=== PATIENT | male | born 1975 | race Caucasian/White ===

== ENCOUNTER 2021-10-28 08:13 | Day surgery (SDC) | payer OTHER ==
[~2021-10-28] VITALS: Ht 182.9 cm; Wt 106.8 kg
[~2021-10-28 08:13] MED LIST: ASPIRIN325 MG; BUSPIRONE HCL5 MG PO; COZAAR25 MG PO; HYDROCHLOROTH12.5 MG; TOPIRAMATE25 MG PO
[2021-10-28] MEDS ORDERED: LOW DOSE ASPIRI81 MG PO (08:31)
[2021-10-28] MEDS ORDERED: MULTIVITAMIN1 EACH PO (08:34)
[2021-10-28] MEDS ORDERED: VITAMIN C500 M1 PO (08:34)
--- NOTE | 2021-10-28 11:05 | NUR ---
10/28/21 1105 Saumya Samuel 1056- PT ARRIVES TO PACU AWAKE ON AND OFF ON HIS OWN. PT REPORTS NO PAIN OR NAUSEA. RESP EVEN AND UNLABORED. OXYGEN SAT MID TO HIGH 90'S ON 3L VIA NC. 1103- PT RESTING IN BED WITH HIS EYES CLOSED. PT HAS NO REQUESTS AT THIS TIME.
--- NOTE | 2021-10-29 09:03 | OR ---
[facility] [address], [place] [address] Signed DATE OF OPERATION: 10/28/2021 SURGEON: Babar Schofield MD PREOPERATIVE DIAGNOSES: 1. Paternal great grandmother with colon cancer in her 80s. 2. Maternal grandfather with colon cancer at age 66. 3. Mother with colonic polyps in her 50s. POSTOPERATIVE DIAGNOSES: 1. 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 2. 5 mm polyp at 25 cm. 3. Minimal internal hemorrhoids. PROCEDURE: Colonoscopy with hot biopsy. ESTIMATED BLOOD LOSS: None. INDICATIONS: Lawrence is a 45-year-old gentleman asked to see me for his initial colonoscopy. He has a significant family history as noted above. He currently has no lower GI complaints. I gave him a pamphlet in the office on colonoscopy and we reviewed that together along with the risks including, but not limited to gas bloating, crampy abdominal pain, bleeding, perforation requiring surgery, and missed diagnosis. We also reviewed the need for IV conscious sedation. He had expressed understanding and wished to proceed. DESCRIPTION OF PROCEDURE: Lawrence was taken into our endoscopy suite and placed in the left lateral decubitus position. He was given 8 mg of Versed and 125 mcg of fentanyl to cover the entire case, even then he was awakened, groaning too much of the procedure. We were actually concerned that we were not going to reach the cecum. Thankfully, his prep was quite good and his colon is not particularly difficult to pass the scope. Nevertheless, he really should consider monitored anesthesia care in the future, it would be much safer and more comfortable for him. He was pushing back on the scope almost the entire procedure. A digital rectal exam was performed. He does have an external hemorrhoid on the left side. He has a big man, I could just reach part of his prostate, not particularly concerning. The adult colonoscope was introduced and advanced under direct visualization of camera. Again, we had to keep adding additional doses of the Versed Electronically Signed By: BABAR SCHOFIELD MD 10/29/21 0903 PATIENT NAME: LAWRENCE MEJIAS OPERATIVE REPORT DATE OF : 71 REPORT #: [id number] PHYSICIAN: BABAR SCHOFIELD MD PCP: JOSE LUIS COOK PA-C REPORT IS CONFIDENTIAL AND NOT TO BE RELEASED WITHOUT AUTHORIZATION [address] [address] Signed and fentanyl. We used some abdominal compression the cecum itself. Thankfully, his prep was quite good. We could easily see the appendiceal orifice and the ileocecal valve. He has a small lipoma on his ileocecal valve. We had taken pictures throughout for photodocumentation. The scope was then slowly withdrawn. He had a polyp back at 5 mm, which we removed with the help of a hot biopsy forceps. The rectum was unremarkable. Upon retroflexion of scope, he has minimal internal hemorrhoid tissue. After this, the gas was suctioned out and colonoscope removed. RECOMMENDATIONS: I will see Lawrence back in the office in 7 to 14 days to review his results. He should consider monitored anesthesia care in the future as described above. Babar Schofield MD ALB/MODL /[id number] cc: Babar Schofield MD Patient Chart's Jose Luis Cook PA-C Copies: BABAR SCHOFIELD MD ~ Electronically Signed By: BABAR SCHOFIELD MD 10/29/21 0903 PATIENT NAME: LAWRENCE MEJIAS OPERATIVE REPORT DATE OF : 71 REPORT #: [id number] PHYSICIAN: BABAR SCHOFIELD MD PCP: JOSE LUIS COOK PA-C REPORT IS CONFIDENTIAL AND NOT TO BE RELEASED WITHOUT AUTHORIZATION
== END 2021-10-28 11:40 | disposition home or self-care (01) ==
LOC: OPS 08:13 → DS 08:13 → OPS 09:15 → DS 10:30 → OPS 11:40
PROVIDERS: ATTEND Colon & Rectal Surgery
PROC: 0DBE8ZX Excision of Large Intestine, Via Natural or Artificial Opening Endoscopic, Diagnostic (ICD-10-PCS; principal; 2021-10-28 09:15)
DX: Z12.11 Encounter for screening for malignant neoplasm of colon (principal); D12.6 Benign neoplasm of colon, unspecified; K64.8 Other hemorrhoids; I11.9 Hypertensive heart disease without heart failure; F17.220 Nicotine dependence, chewing tobacco, uncomplicated; F41.9 Anxiety disorder, unspecified; D17.5 Benign lipomatous neoplasm of intra-abdominal organs; E66.9 Obesity, unspecified; Z68.32 Body mass index [BMI] 32.0-32.9, adult; Z80.0 Family history of malignant neoplasm of digestive organs; Z83.71 Family history of colonic polyps; Z88.0 Allergy status to penicillin
CPT/HCPCS: 99153; G0500; J2250; J3010; J7121